=== PATIENT | male | born 1940 | race Caucasian/White ===

== ENCOUNTER → 2025-01-11 | Outpatient (CLI) | payer MEDICARE, MEDICAID, SELFPAY ==
[2025-01-11 10:25] LABS: Basophils % (Auto) 0 % (0-2.5); Eosinophils # (Auto) 0.1 Thou/mm3 (0.0-0.5); Eosinophils % (Auto) 2 % (0-10); Hematocrit 39.1 % (41.0-53.0); Hemoglobin 14.1 g/dL (13.5-16.0); Immature Granulocytes % (Auto) 0 % (0-0); Immature Granulocytes Auto 0.03 Thou/mm3 (0.00-0.00); Lymphocytes # (Auto) 1.5 Thou/mm3 (1.0-4.8); Lymphocytes % (Auto) 21 % (10-50); Mean Corpuscular HGB Conc 36.1 g/dl (31.0-37.0); Mean Corpuscular Hemoglobin 31.9 pg (25.0-35.0); Mean Corpuscular Volume 89 fL (80-100); Monocytes # (Auto) 0.7 Thou/mm3 (0.0-0.8); Monocytes % (Auto) 10 % (0-12); Neutrophils # (Auto) 4.8 Thou/mm3 (1.8-7.7); Neutrophils % (Auto) 67 % (37-80); Nucleated Red Blood Cell % 0 /100 WBC (0); Platelet Count 224 Thou/mm3 (140-440); RDW Standard Deviation 41.1 fL (35.1-43.9); Red Blood Count 4.42 Miln/mm3 (4.50-5.90); White Blood Count 7.2 Thou/mm3 (3.8-10.6)
[2025-01-11 11:19] LABS: Alanine Aminotransferase 11 U/L (10-49); Albumin, Serum 4.1 gm/dL (3.4-4.8); Albumin/Globulin Ratio 1.3 (1.2-2.2); Alkaline Phosphatase 180 U/L (46-116); Anion Gap 9 (7-16); Aspartate Amino Transferase 14 U/L (0-34); BUN/Creatinine Ratio 18 Ratio (12-20); Bilirubin,Total 0.5 mg/dL (0.3-1.2); Blood Urea Nitrogen 22 mg/dL (9-23); Calcium 8.9 mg/dL (8.3-10.6); Calcium (Corrected) 8.9 mg/dL (8.5-10.1); Carbon Dioxide 26.3 mMol/L (20.0-31.0); Cardiac Risk Estimate 3.6 RATIO (4.0-6.7); Chloride 107 mMol/L (98-107); Cholesterol 170 mg/dL (132-200); Creatinine (Component) 1.2 mg/dL (0.6-1.3); Globulin 3.1 gm/dL (2.3-3.5); Glucose 98 mg/dL (74-106); HDL Cholesterol 47 mg/dL (40-60); LDL Cholesterol,Calculated 104 mg/dL (0-130); Osmolality,Calculated 286 (275-295); Potassium 4.2 mMol/L (3.4-5.1); Sodium 142 mMol/L (136-145); Total Protein 7.2 gm/dL (5.7-8.2); Triglycerides 94 mg/dL (30-150); eGFR > 60 See Note
[2025-01-13 22:04] LABS: PSA, Free 0.16 ng/mL; PSA, Total 0.6 ng/mL (< OR = 4.0)
== END | disposition home or self-care (01) ==
LOC: COPL 09:17
PROVIDERS: PCP Family Medicine; Referring Provider Nurse Practitioner; Visit Provider Nurse Practitioner
DX: N40.1 Benign prostatic hyperplasia with lower urinary tract symptoms (principal); G40.909 Epilepsy, unspecified, not intractable, without status epilepticus; E78.3 Hyperchylomicronemia
CPT/HCPCS: 36415; 80053; 80061; 84153; 84154; 85025

== ENCOUNTER → 2025-05-31 | Outpatient (CLI) | payer MEDICARE, MEDICAID, SELFPAY ==
[2025-05-31 17:57] LABS: Basophils # (Auto) 0.0 Thou/mm3 (0.0-0.2); Basophils % (Auto) 1 % (0-2.5); Eosinophils # (Auto) 0.2 Thou/mm3 (0.0-0.5); Eosinophils % (Auto) 2 % (0-10); Hematocrit 40.2 % (41.0-53.0); Hemoglobin 13.5 g/dL (13.5-16.0); Immature Granulocytes Auto 0.03 Thou/mm3 (0.00-0.00); Lymphocytes # (Auto) 1.7 Thou/mm3 (1.0-4.8); Lymphocytes % (Auto) 24 % (10-50); Mean Corpuscular HGB Conc 33.6 g/dl (31.0-37.0); Mean Corpuscular Hemoglobin 31.5 pg (25.0-35.0); Mean Corpuscular Volume 94 fL (80-100); Monocytes # (Auto) 1.0 Thou/mm3 (0.0-0.8); Monocytes % (Auto) 14 % (0-12); Neutrophils # (Auto) 4.1 Thou/mm3 (1.8-7.7); Neutrophils % (Auto) 59 % (37-80); Nucleated Red Blood Cell # 0.00 Thou/mm3 (0.00-0.00); Nucleated Red Blood Cell % 0 /100 WBC (0); Platelet Count 211 Thou/mm3 (140-440); RDW Standard Deviation 44.2 fL (35.1-43.9); Red Blood Count 4.28 Miln/mm3 (4.50-5.90); White Blood Count 6.9 Thou/mm3 (3.8-10.6)
[2025-05-31 18:00] LABS: INR 1.0 (0.9-1.3); Partial Thromboplastin Time 26.9 Seconds (22.0-36.0); Prothrombin Time 10.9 Seconds (9.0-12.2)
[2025-05-31 18:10] LABS: Anion Gap 9 (7-16); BUN/Creatinine Ratio 20 Ratio (12-20); Blood Urea Nitrogen 20 mg/dL (9-23); Calcium 9.1 mg/dL (8.3-10.6); Carbon Dioxide 23.0 mMol/L (20.0-31.0); Chloride 108 mMol/L (98-107); Creatinine (Component) 1.0 mg/dL (0.6-1.3); Glucose 93 mg/dL (74-106); Osmolality,Calculated 282 (275-295); Potassium 4.0 mMol/L (3.4-5.1); Sodium 140 mMol/L (136-145); eGFR > 60 See Note
== END | disposition home or self-care (01) ==
LOC: COPL 16:03
PROVIDERS: PCP Nurse Practitioner; Referring Provider Internal Medicine; Visit Provider Internal Medicine
DX: I25.10 Atherosclerotic heart disease of native coronary artery without angina pectoris (principal); I48.91 Unspecified atrial fibrillation
CPT/HCPCS: 36415; 80048; 85025; 85610; 85730

== ENCOUNTER 2025-07-27 17:30 | Emergency (ER) | payer MEDICARE, MEDICAID, SELFPAY ==
[2025-07-27 18:26] VITALS: BP 118/75; PULSE 55; RESP 18; TEMP 36.8; O2SAT 99
--- NOTE | 2025-07-27 18:50 | EKG_ITS ---
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
--- NOTE | 2025-07-27 19:23 | XR_ITS ---
EXAMINATION: AP chest single view TECHNIQUE: AP upright portable chest single view Date and time: July 27, 2025, 1943 hours, comparison 05/30/2020 INDICATIONS: Patient fell today with chest pain FINDINGS: Mild prominence left ventricle Ectatic thoracic aorta. No pneumothorax. Suspicious for mild pneumonia versus mild pulmonary contusion at the right base Old fracture right seventh rib posteriorly No acute rib fractures depicted IMPRESSION: No pneumothorax Suspicious for mild pneumonia versus mild pulmonary contusion right base, clinical correlation advised
--- NOTE | 2025-07-27 19:23 | XR_ITS ---
Examination: CT maxillofacial, without intravenous contrast. 2-D sagittal reconstructions. 3-D reconstructions. Date and time of exam: July 27, 2025, 1957 hours INDICATIONS: Patient fell today with injury to the face, facial pain CTDI: vol (mGy): 22.7 DLP: (mGycm): 463 Technique: Multiple axial images of maxillofacial region, 3.0 mm slice thickness. 2-D sagittal and coronal reconstructions. 3-D reconstructions. Low dose protocols were performed. One or more of the following dose reduction techniques were used; automated exposure control, adjustment of the mA and/or KV according to patient size, use of iterative reconstruction technique. Findings: Patient motion degrades scan image quality Frontal bone nasal bones intact No orbital fracture No depression zygomatic arches Pterygoid plates maxilla and the mandible intact IMPRESSION: No acute facial fracture.
--- NOTE | 2025-07-27 19:23 | XR_ITS ---
Examination: CT cervical spine without contrast 2-D sagittal reconstructions 2-D coronal reconstructions 3-D reconstructions. Exam date and time: July 27, 2025, 1957 hours INDICATIONS: Ground-level fall today with injury to the neck, neck pain CTDI:vol (mGy) 13.7 DLP: (mGycm) 263 Technique: Multiple 2 mm axial sections of the cervical spine have been obtained. The coronal and sagittal reconstructions have been obtained. 3-D reconstructions have been obtained. Low dose protocols were performed. One or more of the following dose reduction techniques were used; automated exposure control, adjustment of the mA and/or KV according to patient size, use of iterative reconstruction technique. Findings: Axial sections demonstrate intact base of the skull. C1 exhibit satisfactory relationship to the odontoid. No acute cervical vertebral body fracture seen. Alignment posterior spinous processes satisfactory. Impression: No acute cervical fracture.
--- NOTE | 2025-07-27 19:23 | XR_ITS ---
Examination: CT brain head without contrast. 2-D sagittal coronal reconstructions Date and time of exam: July 27, 2025, 195 hours INDICATIONS: Ground-level fall today with injury to the head, head pain CTDI: vol (mGy): 45 DLP: (mGycm): 847 Technique: Multiple CT axial sections of the brain have been obtained, 5 mm slice thickness. Contrast has not been administered. 2-D sagittal, coronal reconstructions have been obtained Low dose protocols were performed. One or more of the following dose reduction techniques were used; automated exposure control, adjustment of the mA and/or KV according to patient size, use of iterative reconstruction technique. Findings: No significant ventricular enlargement. Intra-axial or extra-axial hemorrhage density is not seen. No mass effect or midline shift Basal cisterns are not remarkable. Fourth ventricle is midline. Cranial vault intact. Impression: Negative for acute hemorrhage, mass effect or midline shift
--- NOTE | 2025-07-27 19:24 | EDRME_ITS ---
Rapid Medical Screening Exam [facility] Arrival date/time: 07/27/25 17:30 84M with history of developmental disorder, seizures, CAD (on Plavix and aspirin), and BPH presents to ED with caregiver for evaluation for unwitnessed fall today. Patient was found conscious on his back. Caregiver note small lac inside lip. Patient was able to ambulate after fall. This is patient's second fall in the past week. No indication of pain. Chief Complaint: Fall Vital signs: Vital Signs Temperature 98.2 F 07/27/25 18:26 Pulse Rate 55 L 07/27/25 18:26 Respiratory Rate 18 07/27/25 18:26 Blood Pressure 118/75 07/27/25 18:26 Pulse Oximetry (%) 99 07/27/25 18:26 Exam: No gross head trauma. Normal WOB. No midline back or ab tenderness. Extremities no tenderness. Clinical Impression: Fall vs CHI vs electrolyte abnormality vs UTI vs fatigue
[2025-07-27 19:53] LABS: Basophils # (Auto) 0.0 Thou/mm3 (0.0-0.2); Basophils % (Auto) 0 % (0-2.5); Eosinophils # (Auto) 0.3 Thou/mm3 (0.0-0.5); Eosinophils % (Auto) 3 % (0-10); Hematocrit 39.1 % (41.0-53.0); Hemoglobin 12.9 g/dL (13.5-16.0); Immature Granulocytes Auto 0.05 Thou/mm3 (0.00-0.00); Lymphocytes # (Auto) 1.6 Thou/mm3 (1.0-4.8); Lymphocytes % (Auto) 17 % (10-50); Mean Corpuscular HGB Conc 33.0 g/dl (31.0-37.0); Mean Corpuscular Hemoglobin 31.9 pg (25.0-35.0); Mean Corpuscular Volume 97 fL (80-100); Monocytes # (Auto) 0.8 Thou/mm3 (0.0-0.8); Monocytes % (Auto) 9 % (0-12); Neutrophils # (Auto) 6.8 Thou/mm3 (1.8-7.7); Neutrophils % (Auto) 71 % (37-80); Nucleated Red Blood Cell # 0.00 Thou/mm3 (0.00-0.00); Nucleated Red Blood Cell % 0 /100 WBC (0); Platelet Count 218 Thou/mm3 (140-440); RDW Standard Deviation 46.5 fL (35.1-43.9); Red Blood Count 4.04 Miln/mm3 (4.50-5.90); White Blood Count 9.5 Thou/mm3 (3.8-10.6)
[2025-07-27 19:54] LABS: Collection Type, Urine Clean Catch
[2025-07-27 20:06] LABS: Bilirubin,Urine Negative (Negative); Blood,Urine Negative (Negative); Clarity,Urine Clear (Clear/Hazy); Color,Urine Lt-Yellow (Lt Yel-Yel); Culture Indicated,Urine Not Indicated; Glucose, Urine Negative (Negative); Ketones,Urine Negative (Negative); Leukocyte Esterase,Urine Negative (Negative); Nitrite,Urine Negative (Negative); PH,Urine 5.5 (5.0-7.0); Protein,Urine Negative (Neg - Trace); RBC,Urine 3 /hpf (0-3); Specific Gravity,Urine 1.019 (1.001-1.035); Squamous Epithelial Cell,Urine < 1 /hpf (0-5); Urobilinogen,Urine Negative mg/dL (0.0-1.0); WBC,Urine 9 /hpf (0-5)
[2025-07-27 20:15] LABS: Alanine Aminotransferase 23 U/L (10-49); Albumin, Serum 4.4 gm/dL (3.4-4.8); Albumin/Globulin Ratio 1.6 (1.2-2.2); Alkaline Phosphatase 166 U/L (46-116); Anion Gap 8 (7-16); Aspartate Amino Transferase 25 U/L (0-34); BUN/Creatinine Ratio 14 Ratio (12-20); Bilirubin,Total 0.3 mg/dL (0.3-1.2); Blood Urea Nitrogen 21 mg/dL (9-23); Calcium 9.3 mg/dL (8.3-10.6); Calcium (Corrected) 9.3 mg/dL (8.5-10.1); Carbon Dioxide 25.6 mMol/L (20.0-31.0); Chloride 105 mMol/L (98-107); Creatinine (Component) 1.5 mg/dL (0.6-1.3); Globulin 2.7 gm/dL (2.3-3.5); Glucose 105 mg/dL (74-106); Osmolality,Calculated 280 (275-295); Potassium 4.6 mMol/L (3.4-5.1); Sodium 139 mMol/L (136-145); Total Protein 7.1 gm/dL (5.7-8.2); eGFR 46 See Note
[2025-07-27 22:06] VITALS: BP 118/67; PULSE 56; RESP 16; TEMP 36.3; O2SAT 96
[2025-07-27 23:04] VITALS: BMI 19.3
--- NOTE | 2025-07-27 23:05 | PD.EDFALL ---
ED Fall Injury RME/HPI General Chief Complaint: Fall Stated Complaint: FALL Arrival date/time: 07/27/25 17:30 RME / HPI RME / HPI Narrative: 07/27/25 17:30 84M with history of developmental disorder, seizures, CAD (on Plavix and aspirin), and BPH presents to ED with caregiver for evaluation for unwitnessed fall today. Patient was found conscious on his back. Caregiver note small lac inside lip. Patient was able to ambulate after fall. This is patient's second fall in the past week. No indication of pain. Dr. Covarrubias?s Main ED Evaluation: 84yo male with a history of developmental delay BIB his caregiver presents to the ED for a fall. Per caregiver, patient had an unwitnessed fall and was found laying on his back. She states the patient was able to ambulate after the fall. Full ROS is unobtainable due to the patient's history of developmental delay. Related Data Home Medications ?Medication ?Instructions ?Recorded ?Confirmed docusate sodium 100 mg capsule 100 mg PO QDAY CONSTIPATION #0 caps 12/16/13 04/09/24 (Colace) phenytoin sodium extended 100 mg 300 mg PO BID SEIZURES #0 caps 08/31/14 04/09/24 capsule finasteride 5 mg tablet 5 mg PO QDAY 05/30/20 04/09/24 metoprolol succinate 50 mg 50 mg PO QDAY 05/30/20 04/09/24 tablet,extended release 24 hr ascorbic acid (vitamin C) 500 mg 500 mg PO BID 01/04/23 04/09/24 tablet (Vitamin C) calcium carbonate (Tums) 200 mg PO BID 01/04/23 04/09/24 cefdinir 300 mg capsule 300 mg PO BID 01/04/23 04/09/24 cranberry 500 mg capsule 500 mg PO DAILY 01/04/23 04/09/24 nitrofurantoin 100 mg PO QDAY 04/09/24 04/09/24 monohydrate/macrocrystals 100 mg capsule (Macrobid) tamsulosin 0.4 mg capsule 0.4 mg PO QHS 04/09/24 04/09/24 Allergies Allergy/AdvReac Type Severity Reaction Status Date / Time Sulfa (Sulfonamide Allergy Verified 04/09/24 12:23 Antibiotics) Review of Systems Review of Systems Systems Reviewed: All systems reviewed, normal except as documented Past Medical History Past Medical History NEUROLOGIC: Positive Neurological Disorders and Seizures (last 30 years ago); Negative Cerebrovascular Accident or Alzheimer's Disease CARDIAC: Positive Cardiac Disorders and Hypertension; Negative Congestive Heart Failure RESPIRATORY: Negative Chronic Obstructive Pulmonary Disease (COPD) GASTROINTESTINAL: Negative Gastrointestinal Disorders, Liver Cancer, Pancreatic Cancer or Pancreatitis GENITOURINARY: Positive Genitourinary Disorders and Benign Prostatic Hyperplasia; Negative Renal Disease MUSCULOSKELETAL: Negative Musculoskeletal Disorders, Muscular Dystrophy, Myasthenia Gravis or Bone Cancer ENT: Negative Blind or Deafness ENDOCRINE: Negative Endocrine Disorders, Diabetes Mellitus Type 1 or Diabetes Mellitus Type 2 HEMATOLOGIC: Negative Blood Disorders PSYCHO/SOCIAL: Negative Psychiatric Problems OTHER HISTORY: Positive Hospitalization (covid); Negative Autoimmune Disease, Blood Transfusions, Blood Transfusion Reaction, Anesthesia Reactions, MRSA, Clostridium Difficile or Cancer Family History FAMILY HISTORY: Negative Family Psychiatric Problems, Family Respiratory Disorders, Family Cardiac Disorders, Family Gastrointestinal Problems, Family Cancer, Family Surgery or Family Anesthesia Reaction Social History SMOKING STATUS: Never smoker SUBSTANCE USE: does not use ED Exam Narrative Physical exam: Generally patient is alert, mentally delayed but no obvious distress, face shows superficial laceration inner aspect of the right upper lip. No vermilion border involvement. No facial swelling other than to the right upper lip. Neck is nontender to palpation, chest shows no wounds and nontender to palpation, heart regular rate and rhythm, lungs clear to auscultation equal bilaterally, abdomen soft nondistended nontender, extremities show no deformities with all major joints being able to be flexed without pain. Neurologic exam showed no focal motor deficits. Course Course Course Narrative: CXR is ordered to r/o pneumothorax. Quality Measures none Orders Category Date Time Status Blood glucose [Bedside Blood Glucose] NOW Care 07/27/25 18:50 Active EKG (ED ONLY) *Do not use* NOW Care 07/27/25 18:[address] cervical spine wo con Stat Exams 07/27/25 19:[address] facial bones wo con Stat Exams 07/27/25 19:[address] head/brain wo con Stat Exams 07/27/25 19:23 Completed EKG (ED Only) Stat Exams 07/27/25 18:50 Draft XR chest 1V portable Stat Exams 07/27/25 19:23 Completed CBC Stat Lab 07/27/25 19:44 Completed CMP [Comprehensive Metabolic Panel] Stat Lab 07/27/25 19:44 Completed Urinalysis, C/S if Indicated Stat Lab 07/27/25 19:40 Completed Vital Signs Vital signs: Vital Signs Temperature 98.2 F 07/27/25 18:26 Pulse Rate 55 L 07/27/25 18:26 Respiratory Rate 18 07/27/25 18:26 Blood Pressure 118/75 07/27/25 18:26 Pulse Oximetry (%) 99 07/27/25 18:26 Fall MDM Narrative MDM Narrative:: Scribe Attestation: 07/27/25 - I, Natalya Gavin am scribing for and in the presence of Dr. Covarrubias. I interpreted all labs. Head CT negative. CT of the cervical spine negative. CT of the facial bones negative. Patient is stable for discharge. There is no clinical reason to repair the superficial laceration of the inner aspect of the right upper lip. 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 Record#: [id number] Birthdate: 1940 Age/Sex: 84 / M Location: [facility] Attending Dr: Ordering Physician: Nghia Reagan PA-C Date of Service: 07/27/25 Procedure(s): CT head/brain wo con Accession Number(s): [id number] cc: Nora Lara; Korey Pulido MD; Nghia Reagan PA-C~ Examination: CT brain head without contrast. 2-D sagittal coronal reconstructions Date and time of exam: July 27, 2025, 1957 hours INDICATIONS: Ground-level fall today with injury to the head, head pain CTDI: vol (mGy): 45 DLP: (mGycm): 847 Technique: Multiple CT axial sections of the brain have been obtained, 5 mm slice thickness. Contrast has not been administered. 2-D sagittal, coronal reconstructions have been obtained Low dose protocols were performed. One or more of the following dose reduction techniques were used; automated exposure control, adjustment of the mA and/or KV according to patient size, use of iterative reconstruction technique. Findings: No significant ventricular enlargement. Intra-axial or extra-axial hemorrhage density is not seen. No mass effect or midline shift Basal cisterns are not remarkable. Fourth ventricle is midline. Cranial vault intact. Impression: Negative for acute hemorrhage, mass effect or midline shift Dictated By: Korey Pulido MD Signed By: <Electronically signed by Korey Pulido MD in OV> 07/27/250 [facility] Signed Patient: JEF LAL [facility]. Record#: [id number] Birthdate: 1940 Age/Sex: 84 / M [facility] Attending Dr: Ordering Physician: Nghia Reagan PA-C Date of Service: 07/27/25 Procedure(s): CT facial bones wo con Accession Number(s): [id number] cc: Nora Lara; Korey Pulido MD; Nghia Reagan PA-C~ Examination: CT maxillofacial, without intravenous contrast. 2-D sagittal reconstructions. 3-D reconstructions. Date and time of exam: July 27, 2025, 195 hours INDICATIONS: Patient fell today with injury to the face, facial pain CTDI: vol (mGy): 22.7 DLP: (mGycm): 463 Technique: Multiple axial images of maxillofacial region, 3.0 mm slice thickness. 2-D sagittal and coronal reconstructions. 3-D reconstructions. Low dose protocols were performed. One or more of the following dose reduction techniques were used; automated exposure control, adjustment of the mA and/or KV according to patient size, use of iterative reconstruction technique. Findings: Patient motion degrades scan image quality Frontal bone nasal bones intact No orbital fracture No depression zygomatic arches Pterygoid plates maxilla and the mandible intact IMPRESSION: No acute facial fracture. Dictated By: Korey Pulido MD Signed By: <Electronically signed by Korey Pulido MD in OV> 07/27/252138 [facility] Signed Patient: JEF LAL [facility]. Record#: [id number] Birthdate: 1940 Age/Sex: 84 / M Location: [facility] Attending Dr: Ordering Physician: Nghia Reagan PA-C Date of Service: 07/27/25 Procedure(s): XR chest 1V portable Accession Number(s): [id number] cc: Nora Lara; Korey Pulido MD; Nghia Reagan PA-C~ EXAMINATION: AP chest single view TECHNIQUE: AP upright portable chest single view Date and time: July 27, 2025, 194 hours, comparison 05/30/2020 INDICATIONS: Patient fell today with chest pain FINDINGS: Mild prominence left ventricle Ectatic thoracic aorta. No pneumothorax. Suspicious for mild pneumonia versus mild pulmonary contusion at the right base Old fracture right seventh rib posteriorly No acute rib fractures depicted IMPRESSION: No pneumothorax Suspicious for mild pneumonia versus mild pulmonary contusion right base, clinical correlation advised Dictated By: Korey Pulido MD Signed By: <Electronically signed by Korey Pulido MD in OV> 07/27/252207 [facility] Signed Patient: JEF LAL [facility]. Record#: [id number] Birthdate: 1940 Age/Sex: 84 / M Location: [facility] Attending Dr: Ordering Physician: Nghia Reagan PA-C Date of Service: 07/27/25 Procedure(s): CT cervical spine wo con Accession Number(s): [id number] cc: Nora Lara; Korey Pulido MD; Nghia Reagan PA-C~ Examination: CT cervical spine without contrast 2-D sagittal reconstructions 2-D coronal reconstructions 3-D reconstructions. Exam date and time: July 27, 2025, 195 hours INDICATIONS: Ground-level fall today with injury to the neck, neck pain CTDI:vol (mGy) 13.7 DLP: (mGycm) 263 Technique: Multiple 2 mm axial sections of the cervical spine have been obtained. The coronal and sagittal reconstructions have been obtained. 3-D reconstructions have been obtained. Low dose protocols were performed. One or more of the following dose reduction techniques were used; automated exposure control, adjustment of the mA and/or KV according to patient size, use of iterative reconstruction technique. Findings: Axial sections demonstrate intact base of the skull. C1 exhibit satisfactory relationship to the odontoid. No acute cervical vertebral body fracture seen. Alignment posterior spinous processes satisfactory. Impression: No acute cervical fracture. Dictated By: Korey Pulido MD Signed By: <Electronically signed by Korey Pulido MD in OV> 07/27/25 7945 Medications / Prescriptions Medications or Prescriptions considered but not ordered:: none Medication administrations:: none Consultations Consultation(s) initiated? (list below): No Diagnosis Fall Differential Diagnosis: other (See MDM) Most likely diagnosis given after review of the tests above:: see clinical impression below Admission Indicated Admission indicated?: not indicated Admission Request Was there a request for admission?: No Disposition Plan Disposition Plan: Discharge Discharge Attestation Discharge Attestation: The patient and all family members were given an opportunity to ask questions and understood the discharge instructions. Discharge instructions specifically effects, indications for sooner follow up or return to the emergency department, and the expected course of current diagnosis. Patient condition: Stable Discharge Plan Plan Patient Disposition: HOME (Self Care) Prescriptions/Referrals Prescriptions/Med Rec: No Action nitrofurantoin monohyd/m-cryst [Macrobid] 100 mg capsule 100 mg PO QDAY Rx Instructions: must administer with a meal/food tamsulosin 0.4 mg capsule 0.4 mg PO QHS docusate sodium [Colace] 100 MG capsule 100 mg PO QDAY Qty: 0 phenytoin sodium extended 100 mg Capsule 300 mg PO BID Qty: 0 Patient Comments: FOR SEIZURE CONTROL metoprolol succinate 50 mg Tablet Extended Release 24 Hr 50 mg PO QDAY finasteride 5 mg Tablet 5 mg PO QDAY ascorbic acid (vitamin C) [Vitamin C] 500 mg Tablet 500 mg PO BID calcium carbonate [Tums] 200 mg calcium (500 mg) Tablet,Chewable 200 mg PO BID cefdinir 300 mg Capsule 300 mg PO BID cranberry 500 mg Capsule 500 mg PO DAILY Rx Instructions: administer with meals Referrals: Nora Lara FNP [Primary Care Provider] - In 1 week Problem List Clinical Impression: Fall, Contusion of lip, Laceration of lip Patient/Caregiver Discharge Instructions Additional Instructions: Tylenol for pain. Continue current medications. Follow-up with primary care as needed. Print Language: Palestinian Stand Alone Forms: Amanda Award Info., Patient Portal Info Letter
[2025-07-27 23:20] VITALS: BP 155/70; PULSE 60; RESP 17; TEMP 36.2; O2SAT 96
== END 2025-07-27 23:20 | disposition home or self-care (01) ==
PROVIDERS: Physician Assistant; Emergency Provider Emergency Medicine; PCP Nurse Practitioner
DX: S01.511A Laceration without foreign body of lip, initial encounter (principal); S19.9XXA Unspecified injury of neck, initial encounter; S09.90XA Unspecified injury of head, initial encounter; I44.0 Atrioventricular block, first degree; R00.1 Bradycardia, unspecified; R07.9 Chest pain, unspecified; W18.30XA Fall on same level, unspecified, initial encounter
CPT/HCPCS: 36415; 70450; 70486; 71045; 72125; 80053; 81001; 85025; 93005; 99283